=== PATIENT | male | born 1935 | race Caucasian/White ===

== ENCOUNTER 2016-09-09 13:21 | Inpatient (IN) | payer OTHER ==
[~2016-09-09] VITALS: Ht 180.3 cm; Wt 64.0 kg
[~2016-09-09 13:21] MED LIST: ADVIL,NUPRIN,M200 MG PO; CARBAMAZEPINE200 M2 PO; TEGRETOL200 MG PO
[2016-09-09 14:52] LABS: HEMATOCRIT 38.6 % (38.0-50.0); MCH 32.5 PG (29.0-34.0); MCHC 34.7 G/DL (30.0-36.0); MCV 93.7 FL (86-99); MEAN PLAT.VOLUME 8.4 uM^3 (9.0-12.4); PLATELET COUNT 286 K/uL (156-360); RBC DIS.WIDTH-CV 13.2 % (11.8-14.6); RBC DIS.WIDTH-SD 43.2 % (39-53); RED BLOOD COUNT 4.12 M/uL (4.00-5.50); WHITE BLOOD COUNT 7.4 K/uL (4.1-10.2)
[2016-09-09 15:00] LABS: CHLORIDE 106 mEq/L (99-109); POTASSIUM 4.1 mEq/L (3.7-5.4); SODIUM 140 mEq/L (136-147)
[2016-09-09 15:02] LABS: GLUCOSE 85 mg/dL (70-99)
[2016-09-09 15:03] LABS: ANION GAP 7 MEQ/L (2-14); D-DIMER ELISA 0.74 mg/L FEU (< 0.57)
[2016-09-09 15:04] LABS: TOTAL BILIRUBIN 0.4 mg/dL (0.0-1.0)
[2016-09-09 15:05] LABS: ADD MIUA? NO; BILIRUBIN NEGATIVE; BLOOD NEGATIVE; COLOR YELLOW ((YELLOW)); GLUCOSE (STRIP) NEGATIVE; KETONES NEGATIVE; LEUKOCYTES NEGATIVE; NITRITE NEGATIVE; PROTEIN (STRIP) NEGATIVE; SPECIFIC GRAVITY 1.012 (1.000-1.030); UCUL ADDED? NO; UROBILINOGEN 0.2 MG/DL (0.2-1.0)
[2016-09-09 15:06] LABS: ALKALINE PHOSPHATASE 53 IU/L (3-129); GFR ESTIMATE (CALCULATED) > 59 mL/min/
[2016-09-09 15:07] LABS: UREA NITROGEN (BUN) 10 mg/dL (9-23)
[2016-09-09 15:09] LABS: CREATINE KINASE 74 IU/L (1-294); TOTAL CK 74 IU/L (1-294)
[2016-09-09 15:12] LABS: TROP-I INTERPRETATION NEGATIVE; TROPONIN-I < 0.01 ng/mL (0.0-0.30)
[2016-09-09 16:10] LABS: BASOPHIL COUNT 0.1 K/uL (0-0.1); EOSINOPHIL (%) 5.5 % (0-5); EOSINOPHIL COUNT 0.4 K/uL (0-0.3); HEMATOLOGY COMMENT 1 SMEAR COMPATIBLE; IMMATURE GRANULOCYTE (%) 0.1 % (0.0-0.7); IMMATURE GRANULOCYTE COUNT 0.1 K/uL; LYMPHOCYTE COUNT 2.2 K/uL (1.0-2.8); MONOCYTE (%) 8.9 % (3-12); MONOCYTE COUNT 0.7 K/uL (0-0.8); NEUTROPHIL (%) 53.7 % (45-76)
[2016-09-09] MEDS ORDERED: LO-DOSE ASPIRIN81 M2 PO (16:25)
[2016-09-09 20:51] VITALS: BP 181/73
[2016-09-10 00:04] VITALS: BP 196/86
[2016-09-10 03:42] VITALS: BP 127/68
[2016-09-10 06:16] LABS: HEMATOCRIT 38.3 % (38.0-50.0); MCHC 34.2 G/DL (30.0-36.0); MCV 93.6 FL (86-99); MEAN PLAT.VOLUME 8.8 uM^3 (9.0-12.4); PLATELET COUNT 272 K/uL (156-360); RBC DIS.WIDTH-CV 13.5 % (11.8-14.6); RBC DIS.WIDTH-SD 46.2 % (39-53); RED BLOOD COUNT 4.09 M/uL (4.00-5.50); WHITE BLOOD COUNT 8.1 K/uL (4.1-10.2)
[2016-09-10 07:19] LABS: ANION GAP 8 MEQ/L (2-14); CHLORIDE 105 MEQ/L (99-109); GFR ESTIMATE (CALCULATED) > 59 mL/min/; GLUCOSE 88 mg/dL (70-99); SAMPLE HEMOLYSIS CHECK 0; SAMPLE ICTERIC CHECK 0; SAMPLE LIPEMIA CHECK 0; SODIUM 139 MEQ/L (136-147); UREA NITROGEN (BUN) 8 mg/dL (9-23)
[2016-09-10 07:41] VITALS: BP 113/62
[2016-09-10 11:47] VITALS: BP 116/64
[2016-09-10 16:21] VITALS: BP 113/63
[2016-09-10 20:42] VITALS: BP 121/67
[2016-09-11] VITALS: BP 123/65
[2016-09-11 04:00] VITALS: BP 97/53
[2016-09-11 08:34] VITALS: BP 112/63
[2016-09-11] MEDS ORDERED: LEVETIRACETAM500 MG PO (09:09)
[2016-09-11] MEDS ORDERED: NIFEDIPINE ER30 MG PO (09:09)
[2016-09-11 10:58] VITALS: BP 97/60
== END 2016-09-11 14:41 | disposition home or self-care (01) | DRG 101 ==
LOC: EME 13:21 → EDOF 18:00 → 5SOUTH 20:41
PROVIDERS: Emergency Medicine; Hospitalist
DX: R56.9 Unspecified convulsions (principal); R55 Syncope and collapse; J44.9 Chronic obstructive pulmonary disease, unspecified; I10 Essential (primary) hypertension; F17.210 Nicotine dependence, cigarettes, uncomplicated; R91.1 Solitary pulmonary nodule; R94.2 Abnormal results of pulmonary function studies; R01.1 Cardiac murmur, unspecified
CPT/HCPCS: 70450; 70551; 71010; 71275; 80048; 80053; 81003; 82550; 82553; 83605; 84443; 84484; 85025; 85027; 85379; 93005; 99281; 99285; J1644; J7030

== ENCOUNTER 2017-02-16 02:26 | Emergency (ER) | payer OTHER ==
[~2017-02-16] VITALS: Ht 180.3 cm; Wt 61.9 kg
[~2017-02-16 02:26] MED LIST changes: +LEVETIRACETAM500 MG PO; +LO-DOSE ASPIRIN81 M2 PO; +NIFEDIPINE ER30 MG PO
[2017-02-16 03:23] LABS: HEMATOCRIT 38.4 % (38.0-50.0); MCH 32.3 PG (29.0-34.0); MCHC 33.9 G/DL (30.0-36.0); MCV 95.5 FL (86-99); MEAN PLAT.VOLUME 8.6 uM^3 (9.0-12.4); PLATELET COUNT 292 K/uL (156-360); RBC DIS.WIDTH-CV 12.4 % (11.8-14.6); RBC DIS.WIDTH-SD 43.8 % (39-53); RED BLOOD COUNT 4.02 M/uL (4.00-5.50)
[2017-02-16 03:31] LABS: CHLORIDE 108 mEq/L (99-109); POTASSIUM 3.7 mEq/L (3.7-5.4); SODIUM 142 mEq/L (136-147)
[2017-02-16 03:34] LABS: GLUCOSE 107 mg/dL (70-99)
[2017-02-16 03:35] LABS: ANION GAP 11 MEQ/L (2-14); TOTAL BILIRUBIN 0.3 mg/dL (0.0-1.0)
[2017-02-16 03:37] LABS: ADD MIUA? YES; BILIRUBIN NEGATIVE; BLOOD NEGATIVE; COLOR YELLOW ((YELLOW)); GLUCOSE (STRIP) NEGATIVE; KETONES NEGATIVE; LEUKOCYTES NEGATIVE; NITRITE NEGATIVE; PROTEIN (STRIP) NEGATIVE; SPECIFIC GRAVITY 1.009 (1.000-1.030); UROBILINOGEN 0.2 MG/DL (0.2-1.0)
[2017-02-16 03:37] LABS: ALKALINE PHOSPHATASE 70 IU/L (3-129); GFR ESTIMATE (CALCULATED) > 59 mL/min/
[2017-02-16 03:38] LABS: UREA NITROGEN (BUN) 15 mg/dL (9-23)
[2017-02-16 03:41] LABS: LIPASE 23 U/L (1.0-51.0)
[2017-02-16] MEDS ORDERED: COLACE100 MG PO (04:27)
[2017-02-16] MEDS ORDERED: BENTYL10 MG PO (04:27)
[2017-02-16 04:31] LABS: BACTERIA RARE /HPF; EPITHELIAL CELLS RARE /HPF; HYALINE CASTS 0-5 /LPF; MUCUS TRACE /LPF; RED BLOOD CELLS 0-5 /HPF (0-5); UCUL ADDED? NO; WHITE BLOOD CELLS 0-5 /HPF (0-5)
[2017-02-16 04:52] VITALS: BP 134/63
== END 2017-02-16 04:53 | disposition home or self-care (01) ==
LOC: EME 02:26
DX: R10.33 Periumbilical pain (principal); I10 Essential (primary) hypertension; F17.200 Nicotine dependence, unspecified, uncomplicated
CPT/HCPCS: 74177; 80053; 81003; 83690; 85027; 99281; 99284; J7040

== ENCOUNTER 2017-10-09 02:01 | Inpatient (IN) | payer OTHER ==
[~2017-10-09] VITALS: Ht 167.6 cm; Wt 57.5 kg
[~2017-10-09 02:01] MED LIST changes: +BENTYL10 MG PO; +COLACE100 MG PO
[2017-10-09 02:53] LABS: HEMATOCRIT 38.6 % (38.0-50.0); HEMOGLOBIN 13.5 G/DL (12.5-16.6); MCH 32.7 PG (29.0-34.0); MCV 93.5 FL (86-99); PLATELET COUNT 262 K/uL (156-360); RBC DIS.WIDTH-CV 12.5 % (11.8-14.6); RED BLOOD COUNT 4.13 M/uL (4.00-5.50); WHITE BLOOD COUNT 15.6 K/uL (4.1-10.2)
[2017-10-09 03:04] LABS: ALBUMIN 4.3 g/dL (3.2-4.8); CHLORIDE 105 mEq/L (99-109); POTASSIUM 3.7 mEq/L (3.7-5.4)
[2017-10-09 03:05] LABS: SODIUM 140 mEq/L (136-147)
[2017-10-09 03:07] LABS: GLUCOSE 136 mg/dL (70-99); TOTAL PROTEIN 7.5 g/dL (6.4-8.3)
[2017-10-09 03:09] LABS: TOTAL BILIRUBIN 0.4 mg/dL (0.0-1.0)
[2017-10-09 03:10] LABS: ALKALINE PHOSPHATASE 79 IU/L (3-129); CREATININE 0.9 mg/dL (0.6-1.3); GFR ESTIMATE (CALCULATED) > 59 mL/min/ (58.99-99999)
[2017-10-09 03:12] LABS: AST (GOT) 23 IU/L (2-34); UREA NITROGEN (BUN) 18 mg/dL (9-23)
[2017-10-09 03:13] LABS: ALT (GPT) 13 IU/L (3-49)
[2017-10-09 03:13] LABS: TROP-I INTERPRETATION NEGATIVE; TROPONIN-I < 0.01 ng/mL (0.0-0.30)
[2017-10-09 03:14] LABS: LIPASE 24 U/L (1.0-51.0)
[2017-10-09 03:46] LABS: APPEARANCE SL.HAZY ((CLEAR)); BILIRUBIN NEGATIVE; BLOOD NEGATIVE; COLOR YELLOW ((YELLOW)); GLUCOSE (STRIP) NEGATIVE; KETONES 5; LEUKOCYTES NEGATIVE; NITRITE NEGATIVE; PROTEIN (STRIP) NEGATIVE; SPECIFIC GRAVITY 1.014 (1.000-1.030); UROBILINOGEN 0.2 MG/DL (0.2-1.0)
[2017-10-09 03:50] LABS: BACTERIA NONE SEEN /HPF; EPITHELIAL CELLS RARE /HPF; HYALINE CASTS 0-5 /LPF; MUCUS TRACE /LPF; RED BLOOD CELLS 0-5 /HPF (0-5); UCUL ADDED? NO; WHITE BLOOD CELLS 0-5 /HPF (0-5)
[2017-10-09 07:30] VITALS: BP 173/82
[2017-10-09] MEDS ORDERED: ATORVASTATIN CA20 MG PO (07:43)
[2017-10-09 09:29] LABS: BASOPHIL (%) 0.4 % (0-1); BASOPHIL COUNT 0.1 K/uL (0-0.1); EOSINOPHIL (%) 0.1 % (0-5); HEMATOCRIT 37.6 % (38.0-50.0); HEMOGLOBIN 12.8 G/DL (12.5-16.6); IMMATURE GRANULOCYTE (%) 0.3 % (0.0-0.7); LYMPHOCYTE (%) 4.5 % (15-42); LYMPHOCYTE COUNT 0.6 K/uL (1.0-2.8); MCH 32.2 PG (29.0-34.0); MCV 94.7 FL (86-99); MONOCYTE (%) 3.8 % (3-12); MONOCYTE COUNT 0.5 K/uL (0-0.8); NEUTROPHIL (%) 90.9 % (45-76); NEUTROPHIL COUNT 12.3 K/uL (1.8-6.4); PLATELET COUNT 252 K/uL (156-360); RBC DIS.WIDTH-CV 12.7 % (11.8-14.6); RBC DIS.WIDTH-SD 44.2 % (39-53); RED BLOOD COUNT 3.97 M/uL (4.00-5.50); WHITE BLOOD COUNT 13.5 K/uL (4.1-10.2)
[2017-10-09 09:59] LABS: ALBUMIN 4.1 G/DL (3.2-4.8); ALKALINE PHOSPHATASE 64 IU/L (3-129); ALT (GPT) 13 IU/L (3-49); AST (GOT) 17 IU/L (2-34); CHLORIDE 101 MEQ/L (99-109); GLUCOSE 150 mg/dL (70-99); POTASSIUM 3.6 MEQ/L (3.7-5.4); SODIUM 138 MEQ/L (136-147)
[2017-10-09 10:20] LABS: CREATININE 0.8 MG/DL (0.6-1.3); DIRECT BILIRUBIN 0.2 mg/dL (0.0-0.3); GFR ESTIMATE (CALCULATED) > 59 mL/min/ (58.99-99999); TOTAL BILIRUBIN 0.6 MG/DL (0.0-1.0); TOTAL PROTEIN 6.5 G/DL (6.4-8.3); UREA NITROGEN (BUN) 14 mg/dL (9-23)
[2017-10-09 11:45] VITALS: BP 162/68
[2017-10-09 15:55] VITALS: BP 161/75
[2017-10-09] MEDS ORDERED: HYDROCODON-ACE1 EAC7 PO (19:21)
[2017-10-09 21:02] VITALS: BP 120/58
[2017-10-10] VITALS: BP 131/63
[2017-10-10 03:19] VITALS: BP 125/78
[2017-10-10 03:50] VITALS: BP 146/64
[2017-10-10 07:41] LABS: HEMATOCRIT 33.4 % (38.0-50.0); HEMOGLOBIN 11.4 G/DL (12.5-16.6); MCH 32.8 PG (29.0-34.0); MCHC 34.1 G/DL (30.0-36.0); PLATELET COUNT 227 K/uL (156-360); RBC DIS.WIDTH-CV 13.1 % (11.8-14.6); RBC DIS.WIDTH-SD 45.7 % (39-53); RED BLOOD COUNT 3.48 M/uL (4.00-5.50); WHITE BLOOD COUNT 12.2 K/uL (4.1-10.2)
[2017-10-10 08:08] LABS: ALBUMIN 3.3 G/DL (3.2-4.8); ALKALINE PHOSPHATASE 57 IU/L (3-129); CHLORIDE 106 MEQ/L (99-109); CREATININE 0.8 MG/DL (0.6-1.3); GFR ESTIMATE (CALCULATED) > 59 mL/min/ (58.99-99999); GLUCOSE 122 mg/dL (70-99); POTASSIUM 4.1 MEQ/L (3.7-5.4); SODIUM 137 MEQ/L (136-147); TOTAL BILIRUBIN 0.5 MG/DL (0.0-1.0); UREA NITROGEN (BUN) 12 mg/dL (9-23)
[2017-10-10 08:10] LABS: ALT (GPT) 56 IU/L (3-49); AST (GOT) 52 IU/L (2-34); TOTAL PROTEIN 5.5 G/DL (6.4-8.3)
[2017-10-10 08:12] VITALS: BP 121/58
[2017-10-10 11:49] VITALS: BP 114/56
== END 2017-10-10 14:56 | disposition home or self-care (01) | DRG 419 ==
LOC: EME 02:01 → 2EAST 04:30 → EDOF 04:30 → ENRESERV 04:56 → 2EAST 07:17
PROVIDERS: Emergency Medicine; Physician Assistant; Surgery
DX: K80.12 Calculus of gallbladder with acute and chronic cholecystitis without obstruction (principal); J44.9 Chronic obstructive pulmonary disease, unspecified; G40.909 Epilepsy, unspecified, not intractable, without status epilepticus; F17.200 Nicotine dependence, unspecified, uncomplicated; I10 Essential (primary) hypertension; I25.10 Atherosclerotic heart disease of native coronary artery without angina pectoris; J84.10 Pulmonary fibrosis, unspecified; I71.2 Thoracic aortic aneurysm, without rupture; K66.0 Peritoneal adhesions (postprocedural) (postinfection); K82.8 Other specified diseases of gallbladder
CPT/HCPCS: 74176; 76705; 80048 91; 80053; 80076; 81003; 82948; 83690; 84484; 85025; 85027; 85610; 88304; 93005; 99202; 99281; 99285; J0131; J0295; J1170; J2405; J3010; J7040; J7050; S0074